=== PATIENT | female | born 1955 | race Hispanic/Latino ===

== ENCOUNTER → 2018-09-14 | Outpatient (CLI) | payer MEDICARE ==
[2018-09-14 10:11] LABS: BASOPHILS # (AUTO) 0.1 (0.0-0.1); BASOPHILS % 1.1 % (0.0-1.0); EOSINOPHILS # (AUTO) 0.2 (0.0-0.4); EOSINOPHILS % 3.1 % (0.0-6.0); HEMATOCRIT 40.7 % (34.2-44.1); HEMOGLOBIN 13.7 g/dL (12.0-16.0); LYMPHOCYTES # (AUTO) 3.1 (1.0-3.2); LYMPHOCYTES % 42.3 % (18.0-39.1); MEAN CORPUSCULAR HEMOGLOBIN 30.6 pg (28-32); MEAN CORPUSCULAR HGB CONC 33.7 g/dL (31-35); MEAN CORPUSCULAR VOLUME 91.1 fL (81-99); MONOCYTES # (AUTO) 0.7 (0.2-0.8); MONOCYTES % 9.9 % (4.4-11.3); NEUTROPHILS # (AUTO) 3.2 (2.1-6.9); NEUTROPHILS % 43.2 % (38.7-80.0); PLATELET COUNT 276 x10e3/uL (140-360); RED BLOOD COUNT 4.47 x10e6/uL (3.6-5.1); RED CELL DISTRIBUTION WIDTH 13.4 % (11.7-14.4)
[2018-09-15 22:13] LABS: ALPHA-1-ANTITRYPSIN 125 mg/dL (90-200)
== END ==
LOC: LAB 09:40
PROVIDERS: ATTEND Internal Medicine Critical Care Medicine
DX: J45.50 Severe persistent asthma, uncomplicated (principal)
CPT/HCPCS: 36415; 82103; 85025; 86001; 86003

== ENCOUNTER 2019-04-29 12:00 | Emergency (ER) | payer MEDICARE ==
[~2019-04-29] VITALS: Ht 152.4 cm; Wt 83.9 kg
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
--- OUTSIDE RECORDS SUMMARY | 2019-04-29 12:03 | XMS REPORT | Clinical Summary ---
Author Author [facility] Address Unknown Phone Unavailable Care Team Providers Care Liver Trimmer Name Role Phone Asked, No Pcp PCP Unavailable Allergies Comments Active Allergy Reactions Severity Noted Date Enalapril 12/21/2018 Levofloxacin 12/21/2018 Losartan 12/21/2018 Medications No known medications Active Problems No known active problems Encounters Care Team Description Date Type Specialty Colt Schmid MD Acute meniscal tear of left knee, initial encounter (Primary Dx) 12/21/2018 Office Visit Orthopedic Surgery Gianna Barbour Left knee pain, unspecified chronicity (Primary Dx) 12/18/2018 Orders Only Orthopedic Surgery Hector, Nickarr Left knee pain, unspecified chronicity (Primary Dx) 09/09/2018 Orders Only Orthopedic Surgery Hector, Nickarr Left knee pain, unspecified chronicity (Primary Dx) 09/02/2018 Orders Only Orthopedic Surgery after 04/28/2018 Social History Date Tobacco Use Types Packs/Day Years Used Never Assessed Sex Assigned at Date Recorded Not on file Industry Job Start Date Occupation Not on file Not on file Not on file Travel End Travel History Travel Start No recent travel history available. 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 Body Mass Index 37.37 Plan of Treatment Health Maintenance Due Date Last Done Comments BREAST CANCER SCREENING 2007 COLON CANCER SCREENING 2007 SHINGLES VACCINES (#1) 2007 INFLUENZA VACCINE 06/21/2019 Procedures Comments Procedure Name Priority Date/Time Associated Diagnosis XR LEG LENGTH EVALUATION Routine 12/21/2018 Left knee pain, 8:05 AM TANK SHOP SUPERVISOR unspecified chronicity XR KNEE 4+ VW LEFT Routine 12/21/2018 Left knee pain, 8:05 AM TANK SHOP SUPERVISOR unspecified chronicity after 04/28/2018 Results * XR Leg Length Evaluation (12/21/2018 8:05 AM TANK SHOP SUPERVISOR) Specimen Narrative Performed At [facility] The radiographs demonstrate narrowing of the medial joint space of the left knee.There is still some joint space preservation on these views. Long leg radiographs demonstrate varus alignment of the left lower extremity due to medial compartment knee arthritis. Performing Organization Address [facility]State[facility] Phone Number [facility] [phone] [place] [address] * XR Knee 4+ Vw Left (12/21/2018 8:05 AM TANK SHOP SUPERVISOR) Specimen Narrative Performed At [facility] The radiographs demonstrate narrowing of the medial joint space of the left knee.There is still some joint space preservation on these views. Long leg radiographs demonstrate varus alignment of the left lower extremity due to medial compartment knee arthritis. Performing Organization Address City/State[facility] Phone Number [facility] [phone] [place] [address] after 04/28/2018 Insurance Type Payer Benefit Subscriber ID Effective Phone Address Plan / Dates Group Medicare MEDICARE MEDICARE xxxxxxxxxxx 2018- [place], PART A AND Present [place] B Medicaid MEDICAID MEDICAID xxxxxxxxx 2018- Present Advance Directives Patient has advance care planning documents on file. For more information, annalisa e contact: Steve Rogel [phone] [place] [address]
--- OUTSIDE RECORDS SUMMARY | 2019-04-29 12:03 | XMS REPORT ---
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 Allergies, Adverse Reactions, Alerts This patient has no known allergies or adverse reactions. Medications This patient has no known medications. Encounters Start Date/Time End Date/Time Encounter Type Admission Type Attending [facility] Care Department Encounter ID 2019-02-23 00:00:00 2019-02-23 00:00:00 Outpatient [facility] [id number] 2019-02-13 00:00:00 2019-02-13 00:00:00 Outpatient [facility] [id number] 2019-02-09 11:25:47 2019-02-09 11:25:47 Outpatient [facility] [id number] 2019-02-09 00:00:00 2019-02-09 00:00:00 Outpatient [facility] [id number] 2018-09-28 00:00:00 2018-09-28 00:00:00 Outpatient [facility] [id number] 2018-09-27 00:00:00 2018-09-27 00:00:00 Outpatient [facility] [id number] 2018-09-12 00:00:00 2018-09-12 00:00:00 Outpatient [facility] [id number] 2018-08-16 10:57:38 2018-08-16 10:57:38 Outpatient [facility] [id number] 2018-07-28 08:57:29 2018-07-28 08:57:29 Outpatient [facility] [id number] 2018-07-28 00:00:00 2018-07-28 00:00:00 Outpatient [facility] [id number] 2018-06-30 09:56:11 2018-06-30 09:56:11 Outpatient [facility] [id number] 2018-06-30 00:00:00 2018-06-30 00:00:00 Outpatient [facility] [id number] 2018-06-28 00:00:00 2018-06-28 00:00:00 Outpatient [facility] [id number] 2018-06-26 00:00:00 2018-06-26 00:00:00 Outpatient [facility] [id number] 2018-06-16 07:35:34 2018-06-16 07:35:34 Outpatient [facility] [id number] 2018-05-15 14:38:37 2018-05-15 14:38:37 Outpatient [facility] [id number] 2018-05-15 12:13:36 2018-05-15 12:13:36 Outpatient [facility] [id number] 2018-05-15 00:00:00 2018-05-15 00:00:00 Outpatient [facility] [id number] 2018-05-12 09:31:36 2018-05-12 09:31:36 Outpatient [facility] [id number] 2018-05-01 00:00:00 2018-05-01 00:00:00 Outpatient [facility] [id number] 2018-04-28 09:32:26 2018-04-28 09:32:26 Outpatient [facility] [id number] 2018-04-28 08:24:47 2018-04-28 08:24:47 Outpatient [facility] [id number] 2018-04-14 08:01:25 2018-04-14 08:01:25 Outpatient [facility] [id number] 2018-04-13 09:30:19 2018-04-13 09:30:19 Outpatient [facility] [id number] 2018-03-17 00:00:00 2018-03-17 00:00:00 Outpatient [facility] [id number] 2018-03-17 00:00:00 2018-03-17 00:00:00 Outpatient [facility] [id number] 2018-03-10 00:00:00 2018-03-10 00:00:00 Outpatient [facility] [id number] 2018-03-08 00:00:00 2018-03-08 00:00:00 Outpatient [facility] [id number] 2018-02-24 11:31:13 2018-02-24 11:31:13 Outpatient [facility] [id number] 2018-02-17 09:36:34 2018-02-17 09:36:34 Outpatient [facility] [id number] 2018-02-16 00:00:00 2018-02-16 00:00:00 Outpatient [facility] [id number] 2018-02-10 08:15:24 2018-02-10 08:15:24 Outpatient [facility] [id number] 2018-02-03 09:51:58 2018-02-03 09:51:58 Outpatient [facility] [id number] 2018-02-01 00:00:00 2018-02-01 00:00:00 Outpatient [facility] [id number] 2018-01-05 00:00:00 2018-01-05 00:00:00 Outpatient [facility] [id number] 2017-12-29 14:46:16 2017-12-29 14:46:16 Outpatient [facility] [id number] 2017-12-23 13:37:55 2017-12-23 13:37:55 Outpatient [facility] [id number] 2017-12-22 07:34:49 2017-12-22 07:34:49 Outpatient [facility] [id number] 2017-12-09 12:36:13 2017-12-09 12:36:13 Outpatient [facility] [id number] 2017-11-30 14:12:42 2017-11-30 14:12:42 Outpatient [facility] [id number] 2017-11-30 00:00:00 2017-11-30 00:00:00 Outpatient [facility] [id number] 2017-11-23 00:00:00 2017-11-23 00:00:00 Outpatient [facility] [id number] 2017-11-10 13:19:49 2017-11-10 13:19:49 Outpatient [facility] [id number] 2017-11-01 11:17:34 2017-11-01 11:17:34 Outpatient [facility] [id number] 2017-11-01 10:46:49 2017-11-01 10:46:49 Outpatient [facility] [id number] 2017-11-01 09:37:48 2017-11-01 09:37:48 Outpatient [facility] [id number] 2017-10-11 08:45:52 2017-10-11 08:45:52 Outpatient [facility] [id number] 2017-10-11 00:00:00 2017-10-11 00:00:00 Outpatient [facility] [id number] 2017-10-10 15:22:48 2017-10-10 15:22:48 Outpatient [facility] [id number] 2017-09-29 00:00:00 2017-09-29 00:00:00 Outpatient [facility] [id number] 2017-09-29 00:00:00 2017-09-29 00:00:00 Outpatient [facility] [id number] 2017-09-20 12:16:16 2017-09-20 12:16:16 Outpatient [facility] [id number] 2017-09-12 09:47:02 2017-09-12 09:47:02 Outpatient [facility] [id number] 2017-09-01 10:34:13 2017-09-01 10:34:13 Outpatient [facility] [id number] 2017-08-16 14:23:27 2017-08-16 14:23:27 Outpatient [facility] [id number] 2017-08-10 00:00:00 2017-08-10 00:00:00 Outpatient [facility] [id number] 2017-08-03 14:40:06 2017-08-03 14:40:06 Outpatient [facility] [id number] 2017-08-03 11:18:20 2017-08-03 11:18:20 Outpatient [facility] [id number] 2017-07-22 00:00:00 2017-07-22 00:00:00 Outpatient [facility] [id number] 2017-07-06 00:00:00 2017-07-06 00:00:00 Outpatient [facility] [id number] 2017-06-20 00:00:00 2017-06-20 00:00:00 Outpatient [facility] [id number] 2017-06-15 13:20:40 2017-06-15 13:20:40 Outpatient [facility] [id number] 2017-05-27 15:43:36 2017-05-27 15:43:36 Outpatient [facility] [id number] 2017-05-27 15:14:46 2017-05-27 15:14:46 Outpatient [facility] [id number] 2017-05-26 00:00:00 2017-05-26 00:00:00 Outpatient [facility] [id number] 2017-05-11 09:58:39 2017-05-11 09:58:39 Outpatient [facility] [id number] 2017-05-05 00:00:00 2017-05-05 00:00:00 Outpatient [facility] [id number] 2017-05-05 00:00:00 2017-05-05 00:00:00 Outpatient [facility] [id number] 2017-05-04 00:00:00 2017-05-04 00:00:00 Outpatient [facility] [id number] 2017-05-04 00:00:00 2017-05-04 00:00:00 Outpatient [facility] [id number] 2017-05-04 00:00:00 2017-05-04 00:00:00 Outpatient [facility] [id number] 2017-04-26 08:40:15 2017-04-26 08:40:15 Outpatient [facility] [id number] 2017-04-25 12:31:08 2017-04-25 12:31:08 Outpatient [facility] [id number]
== END 2019-04-29 12:16 | disposition home or self-care (01) ==
LOC: ER 12:00
DX: L25.5 Unspecified contact dermatitis due to plants, except food (principal); I10 Essential (primary) hypertension; E11.9 Type 2 diabetes mellitus without complications; J45.909 Unspecified asthma, uncomplicated
CPT/HCPCS: 99282

== ENCOUNTER 2019-05-04 09:29 | Emergency (ER) | payer MEDICARE ==
[~2019-05-04] VITALS: Ht 152.4 cm; Wt 83.9 kg
--- OUTSIDE RECORDS SUMMARY | 2019-05-04 09:31 | XMS REPORT | Clinical Summary ---
Author Author [facility] Organization [facility] Address Unknown Phone Unavailable Care Team Providers Care [place] Operator Name Role Phone Alethea Hopkins CONCRETE WORKER PCP Allergies Comments Active Allergy Reactions Severity [...] daily. Active ciclesonide (ZETONNA) 37 Use 1 [place] 6.1 g 3 mcg/actuation nasal HFA in each 9 inhalerIndications: nostril Chronic seasonal allergic daily. rhinitis due to pollen 05/15/2018 Discontinued budesonide-formoterol Inhale 2 10.2 g 3 (SYMBICORT HFA) 160-4.5 Puffs by 7 mcg/actuation mouth 2 times inhalerIndications: daily Please Asthma, intermittent, stop taking uncomplicated the 80/4.5 dose.. 05/15/2018 Discontinued fluticasone-salmeterol Inhale by 60 Each 3 (ADVAIR DISKUS) 250-50 mouth: 1 puff 7 mcg/dose diskus inhaler 2 times daily automatic substitution for symbicort per p&t 02/09/2019 Discontinued amLODIPine (NORVASC) 10 Take 1 tablet 90 tablet 3 mg tabletIndications: by mouth 8 Essential hypertension daily. 02/09/2019 Discontinued ciclesonide (ZETONNA) 37 Use 1 [place] 6.1 g 3 mcg/actuation nasal HFA in [...] allergic rhinitis due to pollen 02/09/2019 Refill [facility] Alethea Hopkins NP Chronic superficial gastritis without bleeding (Primary Dx); Primary osteoarthritis of both knees 08/16/2018 Office Visit [facility] Will Mcdaniel MD Current severe episode of major depressive disorder without psychotic features without prior episode 07/28/2018 Office Visit Psychiatry Avis Ospina, CHIP WASHER 07/28/2018 Clinical Case Social Work Mgt Nadia Ambrocio NP Acute bronchitis, unspecified organism (Primary Dx); Moderate asthma without complication, unspecified whether persistent; Cough; Type 2 diabetes mellitus without complication, without long-term current use of insulin 06/30/2018 Same Day [facility] Will Mcdaniel MD Current severe episode [...] type; Asthma, intermittent, uncomplicated 05/15/2018 Office Visit [facility] Tianna Howell MD Shipman-Wadley, Cassandra J, NP 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 after 05/03/2018 Insurance Type Payer Benefit Subscriber ID Effective Phone Address Plan / Dates Group MEDICARE MEDICARE xxxxxxxxxxx 2018- [phone] [address] Present [id number] [place] [address] [place] [id number] xxxxxxxxx 2018- [phone] [address] QUALIFIED Present 2005 MEDICARE [place], [place] BENEFICIAR [id number] Y
--- OUTSIDE RECORDS SUMMARY | 2019-05-04 09:32 | XMS REPORT | Clinical Summary ---
Author Author [facility] Address Unknown Phone Unavailable Care Team Providers Care Senior Data Warehouse Developer Name Role Phone Asked, No Pcp PCP [...] Dx) 09/02/2018 Orders Only Orthopedic Surgery after 05/03/2018 Social History Date Tobacco Use Types Packs/Day [...] Inhaled Oxygen - Concentration 12/21/2018 8:01 AM MANAGER INTERVENTIONAL Weight 83.9 kg (185 lb) 12/21/2018 8:01 AM MANAGER INTERVENTIONAL Height 149.9 cm (4' 11") 12/21/2018 8:01 AM MANAGER INTERVENTIONAL Body Mass Index 37.37 Plan of Treatment Health Maintenance Due Date Last Done Comments BREAST CANCER SCREENING 2007 COLONOSCOPY SCREENING 2007 SHINGLES VACCINES (#1) 2007 INFLUENZA VACCINE 06/21/2019 Procedures Comments Procedure Name Priority Date/Time Associated Diagnosis XR LEG LENGTH EVALUATION Routine 12/21/2018 Left knee pain, 8:05 AM MANAGER INTERVENTIONAL unspecified chronicity XR KNEE 4+ VW LEFT Routine 12/21/2018 Left knee pain, 8:05 AM MANAGER INTERVENTIONAL unspecified chronicity after 05/03/2018 Results * XR Leg Length Evaluation (12/21/2018 8:05 AM MANAGER INTERVENTIONAL) Specimen Narrative Performed At [facility] The radiographs demonstrate narrowing of the medial joint space of the left knee.There is still some joint space preservation on these views. Long leg radiographs demonstrate varus alignment of the left lower extremity due to medial compartment knee arthritis. Performing Organization Address [facility] Phone Number [facility] [phone] [place] [address] * XR Knee 4+ Vw Left (12/21/2018 8:05 AM MANAGER INTERVENTIONAL) Specimen Narrative Performed At [facility] The radiographs demonstrate narrowing of the medial joint space of the left knee.There is still some joint space preservation on these views. Long leg radiographs demonstrate varus alignment of the left lower extremity due to medial compartment knee arthritis. Performing Organization Address [facility] Phone Number [facility] [address] [place] [address] after 05/03/2018 Insurance Type Payer Benefit Subscriber ID Effective Phone Address Plan / Dates Group Medicare MEDICARE MEDICARE xxxxxxxxxxx 2018- [place], PART A AND Present [place] B Medicaid MEDICAID MEDICAID xxxxxxxxx 2018- Present Advance Directives Patient has advance care planning documents on file. For more information, annalisa cee contact: Steve Rogel [address] [place] [address]
[2019-05-04] MEDS ORDERED: METHYLPREDNISOLONE SOD SUCC 125 MG/2ML VIAL IM ONE (09:45)
[2019-05-04] MEDS ORDERED: TETANUS/DIPHTHERIA TOX ADULT 0.5 ML SYR IM ONE (10:00)
== END 2019-05-04 10:30 | disposition home or self-care (01) ==
LOC: ER 09:29
DX: L23.7 Allergic contact dermatitis due to plants, except food (principal)
CPT/HCPCS: 99282; J2930

== ENCOUNTER → 2020-11-06 | Outpatient (CLI) | payer MEDICARE ==
[~2020-11-06] MED LIST: IOPAMIDOL 370 MG/ML 200 ML INFUS..BTL INJ ONE; SODIUM CHLORIDE 0.9% 50ML 50 ML ONE
[2020-11-06 12:33] LABS: BLOOD UREA NITROGEN 13 mg/dL (7-26); BUN/CREATININE RATIO 19 (6-25); CREATININE, SERUM 0.68 mg/dL (0.57-1.11); EST GLOMERULAR FILTRATION RATE > 60 ML/MIN (60-)
== END ==
LOC: MAMMO 11:30
PROVIDERS: ATTEND Family Medicine
DX: R10.84 Generalized abdominal pain (principal)
CPT/HCPCS: 36415; 74177; 77067; 77080; 82565; 84520; Q9967

== ENCOUNTER → 2020-12-04 | Outpatient (CLI) | payer MEDICARE | LOC: MAMMO 09:28 | PROVIDERS: ATTEND Family Medicine | DX: R92.8 Other abnormal and inconclusive findings on diagnostic imaging of breast (principal) ==

== ENCOUNTER → 2023-01-18 | Outpatient (CLI) | payer MEDICARE | LOC: MAMMO 09:22 | PROVIDERS: ATTEND Family Medicine | DX: Z12.31 Encounter for screening mammogram for malignant neoplasm of breast (principal) | CPT/HCPCS: 77067 ==